=== PATIENT | male | born 1995 | race Caucasian/White ===

== ENCOUNTER 2016-06-10 13:58 | Emergency (ER) | payer OTHER ==
[2016-06-10 14:06] VITALS: BP 150/83; PULSE 63; TEMP 97.6; BMI 22.5
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
== END 2016-06-10 15:54 | disposition home or self-care (01) ==
LOC: JERFT 13:58
DX: S13.4XXA Sprain of ligaments of cervical spine, initial encounter (principal); G44.319 Acute post-traumatic headache, not intractable; F90.9 Attention-deficit hyperactivity disorder, unspecified type; V86.59XA Driver of other special all-terrain or other off-road motor vehicle injured in nontraffic accident, initial encounter; Y92.488 Other paved roadways as the place of occurrence of the external cause; Y93.89 Activity, other specified; Y99.8 Other external cause status
CPT/HCPCS: 70450-TC; 72125-TC; 99281-25